=== PATIENT | male | born 1990 | race Caucasian/White ===

== ENCOUNTER 2022-10-14 22:18 | Emergency (ER) | payer OTHER ==
[~2022-10-14] VITALS: Ht 170.2 cm; Wt 78.9 kg
[2022-10-14 23:46] LABS: ANION GAP 16.6 (8-16); CARBON DIOXIDE 26.6 mmol/L (21-32); CREATININE 0.9 mg/dL (0.6-1.3); POTASSIUM 4.2 mmol/L (3.5-5.1); TOTAL BILIRUBIN 0.1 mg/dL (0.0-1.0)
--- NOTE | 2022-10-15 00:06 | NUR ---
[employer] GOT NEEDLE STICK IN TELE FLOOR TODAY AT 2100
[2022-10-15] MEDS ORDERED: RALT400T PO (02:32)
[2022-10-15] MEDS ORDERED: EMTR1TAB12 PO (02:32)
--- NOTE | 2022-10-15 02:37 | NUR ---
Patient discharged with v/s stable. Written and verbal after care instructions given and explained. Patient alert, oriented and verbalized understanding of instructions. Ambulatory with steady gait. All questions addressed prior to discharge. ID band removed. Patient advised to follow up with PMD. Rx of TRUVADA AND ISENTRESS given. Patient educated on indication of medication including possible reaction and side effects. Opportunity to ask questions provided and answered.
[2022-10-16 12:08] LABS: HEPATITIS B SURFACE ANTIGEN Negative (Negative)
== END 2022-10-15 02:37 | disposition home or self-care (01) ==
LOC: MED 22:18
DX: Z57.8 Occupational exposure to other risk factors (principal)
CPT/HCPCS: 36415; 80053; 86592; 86702; 86803; 87340; 99283

== ENCOUNTER 2023-10-13 09:34 | Outpatient (CLI) | payer OTHER ==
[~2023-10-13 09:34] MED LIST: EMTR1TAB12 PO; RALT400T PO
[2023-10-13 10:11] LABS: BASOPHILS % (AUTO) 0.4 % (0.0-2.0); EOSINOPHILS # (AUTO) 0.1 K/uL (0-0.4); EOSINOPHILS % (AUTO) 2.5 % (0.0-4.0); HEMATOCRIT 41.2 % (36-52); HEMOGLOBIN 13.7 g/dL (12.0-18.0); LYMPHOCYTES # (AUTO) 1.4 K/uL (2.0-11.5); LYMPHOCYTES % (AUTO) 32.7 % (20.5-51.1); MEAN CORPUSCULAR HEMOGLOBIN 29 pg (27-31); MEAN CORPUSCULAR HGB CONC 33 g/dL (33-37); MEAN CORPUSCULAR VOLUME 87.6 fL (80-94); MONOCYTES # (AUTO) 0.4 K/uL (0.8-1.0); MONOCYTES % (AUTO) 9.1 % (1.7-9.3); NEUTROPHILS # (AUTO) 2.5 K/uL (1.8-7.7); NEUTROPHILS % (AUTO) 55.3 % (42.2-75.2); PLATELET COUNT (AUTO) 203 K/uL (140-450); RED BLOOD CELL COUNT(AUTO) 4.71 MIL/uL (4.20-6.10); RED CELL DISTRIBUTION WIDTH 13.8 % (11.6-13.7); WHITE BLOOD COUNT (AUTO) 4.4 K/uL (4.8-10.8)
[2023-10-13 10:22] LABS: ALBUMIN 3.9 g/dL (3.4-5.0); CALCIUM 8.8 mg/dL (8.5-10.1); CARBON DIOXIDE 29.2 mmol/L (21-32); CHOL/HDL RATIO 4.4 (1-4.5); POTASSIUM 4.2 mmol/L (3.5-5.1); THYROID STIMULATING HORMONE 1.44 uIU/mL (0.34-3.74); TOTAL BILIRUBIN 0.2 mg/dL (0.0-1.0); TOTAL PROTEIN, SERUM 7.1 g/dL (6.4-8.2)
== END 2023-10-13 19:55 | disposition home or self-care (01) ==
LOC: MLB 09:34
PROVIDERS: ATTEND Family Medicine
DX: E78.2 Mixed hyperlipidemia (principal)
CPT/HCPCS: 36415; 80053; 82306; 84443; 85025